=== PATIENT | female | born 2000 | race Caucasian/White ===

== ENCOUNTER 2021-08-17 18:01 | Emergency (ER) | payer OTHER ==
[~2021-08-17] VITALS: Ht 182.9 cm; Wt 81.3 kg
--- NOTE | 2021-08-17 18:31 | PHYS DOC ---
Adult General Chief Complaint Chief Complaint: FLANK PAIN HPI HPI Patient is a 21-year-old female who presents with flank pain, body aches and fever for the last couple of days, 6 out of 10, sharp in nature. States she has had fevers at home to 103 that respond to Tylenol. States that her urine has been dark and warm more than usual. Denies any recent travels, traumas, illnesses, chest pain, shortness of breath, abdominal pain, nausea, vomiting, diarrhea. Review of Systems Review of Systems Review of systems otherwise unremarkable except noted in HPI Allergies Allergies Allergies Coded Allergies Type Severity Reaction Last Updated Verified doxycycline Allergy Unknown 08/17/21 Yes Physical Exam Physical Exam Constitutional: Well developed, well nourished, no acute distress, non-toxic appearance. [] HENT: Normocephalic, atraumatic, bilateral external ears normal, oropharynx moist, no oral exudates, nose normal. [] Eyes: PERRLA, EOMI, conjunctiva normal, no discharge. [] Neck: Normal range of motion, no tenderness, supple, no stridor. [] Cardiovascular:Heart rate regular rhythm, no murmur [] Lungs & Thorax: Bilateral breath sounds clear to auscultation [] Abdomen: Bowel sounds normal, soft, no tenderness, no masses, no pulsatile masses. [] Skin: Warm, dry, no erythema, no rash. [] Back: No tenderness, no CVA tenderness. [] Extremities: No tenderness, no cyanosis, no clubbing, ROM intact, no edema. [] Neurologic: Alert and oriented X 3, normal motor function, normal sensory function, no focal deficits noted. [] Psychologic: Affect normal, judgement normal, mood normal. [] EKG EKG [] Radiology/Procedures Radiology/Procedures [] Heart Score C/O Chest Pain: No Risk Factors: Risk Factors: DM, Current or recent (<one month) smoker, HTN, HLP, family history of CAD, obesity. Risk Scores: Risk Factors: DM, Current or recent (<one month) smoker, HTN, HLP, family history of CAD, obesity. Course & Med Decision Making Course & Med Decision Making Patient is a 21-year-old female who presents with flank pain, body aches and fever Vital signs notable for fever. Physical exam noted above. Given Tylenol and pain medicine. Laboratory analysis notable for leukocytosis. Urinalysis with nitrite positive urinary tract infection and elevated white count. Discussed all findings with patient. Gave her dose of Rocephin in the ED for pyelonephritis. Discussed antibiotic regimen. Discussed symptom management at home. Advised to follow-up in the morning with primary care physician and set up a follow-up visit. Gave return precautions to the ED. Patient grateful, verbalized understanding and agreed with plan of discharge. Dragon Disclaimer Dragon Disclaimer This electronic medical record was generated, in whole or in part, using a voice recognition dictation system. Departure Departure: Impression: Primary Impression: Pyelonephritis Disposition: HOME / SELF CARE / HOMELESS Condition: GOOD Referrals: ALCIRA FORRESTER (PCP) Patient Instructions: Pyelonephritis, Adult Additional Instructions: Thank you for coming into the emergency department tonight and allowing us to take care of you. Please read all the attached information carefully to go over things we discussed. Please take all your antibiotics as prescribed and until gone. You can take Tylenol and ibuprofen at home as needed. Please stay well- hydrated. Please call your primary care physician in the morning to update on your ED visit and set up a follow-up as soon as you can for reevaluation of your urine and treatment. Please come back to the ED with new or concerning symptoms as we discussed. Scripts Cephalexin (KEFLEX) 500 Mg Capsule 1 CAP PO TID for pyelonephritis for 7 Days, #21 CAP Prov: MALIKA ARRIOLA MD 08/17/21 MALIKA ARRIOLA MD Aug 17, 2021 18:31
[2021-08-17 19:11] LABS: BASO # 0.1 x10^3/uL (0.0-0.2); BASO % 0 % (0-3); EOS % 0 % (0-3); HEMATOCRIT 44.5 % (36.0-47.0); HEMOGLOBIN 15.1 g/dL (12.0-15.5); LYMPH # 2.2 x10^3/uL (1.0-4.8); LYMPH % 12 % (24-48); MEAN CORPUSCULAR HEMOGLOBIN 31 pg (25-35); MEAN CORPUSCULAR HGB CONC 34 g/dL (31-37); MEAN CORPUSCULAR VOLUME 92 fL (79-100); MONO # 2.8 x10^3/uL (0.0-1.1); MONO % 15 % (0-9); NEUT # 13.3 x10^3uL (1.8-7.7); NEUT % 72 % (31-73); PLATELET COUNT 242 x10^3/uL (140-400); RED BLOOD COUNT 4.81 x10^6/uL (3.50-5.40); RED CELL DISTRIBUTION WIDTH 14.1 % (11.5-14.5); WHITE BLOOD COUNT 18.4 x10^3/uL (4.0-11.0)
[2021-08-17 19:13] LABS: CALCIUM 9.2 mg/dL (8.5-10.1); CREATININE 0.8 mg/dL (0.6-1.0); GFR 91.4; POTASSIUM 3.4 mmol/L (3.5-5.1)
[2021-08-17 19:18] LABS: ALBUMIN 4.1 g/dL (3.4-5.0); ALBUMIN/GLOBULIN RATIO 0.9 (1.0-1.7); TOTAL BILIRUBIN 0.7 mg/dL (0.2-1.0); TOTAL PROTEIN 8.8 g/dL (6.4-8.2)
[2021-08-17 19:30] LABS: BACTERIA,URINE MOD /HPF (0-FEW); BILIRUBIN,URINE NEG (NEG); CLARITY,URINE CLOUDY; COLOR,URINE YELLOW; GLUCOSE,URINE NEG (NEG); NITRITE,URINE POS (NEG); SQUAMOUS EPITHELIAL CELL,UR FEW /LPF; WBC,URINE >40 /HPF (0-4)
[2021-08-17] MEDS ORDERED: cefTRIAXone SODIUM 1 GM VIAL ONE ×2 (19:34→19:40)
[2021-08-17] MEDS ORDERED: CEPH500C PO (19:37)
[2021-08-17] MEDS ORDERED: IV NORMAL SALINE 50ML 50 ML ONE (19:40)
[2021-08-17] MEDS: oxyCODONE/APAP 5/325 1 TAB TABLET PO ONE (19:45)
[2021-08-17 20:03] VITALS: BP 132/55
[2021-08-17 20:09] LABS: % LYMPHS 17 % (24-48); % MONOS 14 % (0-10); % SEGS 69 % (35-66); PLT ESTIMATE ADEQUATE (ADEQUATE)
== END 2021-08-17 20:26 | disposition home or self-care (01) ==
LOC: ER 18:01
DX: N12 Tubulo-interstitial nephritis, not specified as acute or chronic (principal); Z88.1 Allergy status to other antibiotic agents
CPT/HCPCS: 36415; 80053; 81001; 81025; 83690; 85007; 85025; 87086; 96365; 99284; J0696

== ENCOUNTER 2021-09-13 05:39 | Emergency (ER) | payer OTHER ==
[~2021-09-13] VITALS: Ht 182.9 cm; Wt 80.3 kg
[~2021-09-13 05:39] MED LIST: CEPH500C PO
--- NOTE | 2021-09-13 05:47 | PHYS DOC ---
Past History Past Surgical History: No Surgical History Alcohol Use: None General Adult HPI: HPI: "I was doing .. Tricep dips... And felt something tear in the center of my chest on the left.... 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 Pain started after doing tricep dips. Patient denies any other health history. Patient denies any cardiac history. Patient denies any other injury. Patient denies any history of coagulopathy with her or family members. Patient denies any fever, chills or cough. Pt. follows with at [place]. Review of Systems: Review of Systems: Constitutional: Denies fever or chills Eyes: Denies change in visual acuity HENT: Denies nasal congestion or sore throat Respiratory: Denies cough or shortness of breath Cardiovascular: Complains of chest wall pain GI: Denies abdominal pain, nausea, vomiting, bloody stools or diarrhea : Denies dysuria Musculoskeletal: Denies back pain or joint pain Integument: Denies rash Neurologic: Denies headache, focal weakness or sensory changes Endocrine: Denies polyuria or polydipsia Lymphatic: Denies swollen glands Psychiatric: Denies depression or anxiety Family History: Family History: Noncontributory to presentation Current Medications: Current Meds: See nursing for home meds Allergies: Allergies: Allergies Coded Allergies Type Severity Reaction Last Updated Verified doxycycline Allergy Unknown 08/17/21 Yes Physical Exam: PE: Constitutional: Well developed, well nourished, no acute distress, non-toxic appearance. [] HENT: Normocephalic, atraumatic, bilateral external ears normal, oropharynx moist, no oral exudates, nose normal. [] Eyes: PERRLA, EOMI, conjunctiva normal, no discharge. [] Neck: Normal range of motion, no tenderness, supple, no stridor. [] Cardiovascular:Heart rate regular rhythm, no murmur [] Lungs & Thorax: Bilateral breath sounds equal apex on auscultation [. The palpation of sternal edge and left pectoral very tender. Pain is reproducible. Clavicle stable. Abdomen: Bowel sounds normal, soft, no tenderness, no masses, no pulsatile masses. [] Skin: Warm, dry, no erythema, no rash. [] Back: No tenderness, no CVA tenderness. [] Extremities: No tenderness, no cyanosis, no clubbing, ROM intact, no edema. Deltoid sensation intact. No AC separation. Neurologic: Alert and oriented X 3, normal motor function, normal sensory function, no focal deficits noted. [] Psychologic: Affect anxious, judgement normal, mood normal. [] EKG: EKG: [] Radiology/Procedures: Radiology/Procedures: [][address] [address] IMAGING REPORT Signed PATIENT: CARLTON RODAS JACCOUNT: [id number] : 2000 LOCATION: ER AGE: 21 SEX: F EXAM STATUS: REG ER ORD. PHYSICIAN: ASHLEE RUIZ MD REASON: Sternal pain-chest pain PROCEDURE: CHEST PA & LATERAL XR CHEST 2V Technique: PA and lateral views of the chest were obtained. Clinical History: Reason: Sternal pain-chest pain / Spl. Instructions: / History: Comparison: None. Findings: The heart and pulmonary vasculature appear within normal limits. The lungs are clear. The pleural margins are clear. Impression: No acute chest process is seen. Electronically signed by: Petar Steen III, MD (09/13/2021 6:27 AM) [facility] DICTATED AND SIGNED BY: PETAR STEEN III, MD DATE: 09/13/21 0626 CC: ALCIRA FORRESTER; ASHLEE RUIZ MD ~MTH0 0 Heart Score: C/O Chest Pain: N/A Risk Factors: Risk Factors: DM, Current or recent (<one month) smoker, HTN, HLP, family history of CAD, obesity. Risk Scores: Score 0 - 3: 2.5% MACE over next 6 weeks - Discharge Home Score 4 - 6: 20.3% MACE over next 6 weeks - Admit for Clinical Observation Score 7 - 10: 72.7% MACE over next 6 weeks - Early Invasive Strategies Course & Med Decision Making: Course & Med Decision Making Pertinent Labs and Imaging studies reviewed. (See chart for details) Endorsed to Dr. Otero at shift change. He will make final disposition once CXR completed. Recommend patient use ice packs as needed. Take Tylenol and ibuprofen for pain. Follow-up primary care. Impression: 1. Chest wall pain-left pectoral and sternal muscle tear [] Jolanta Disclaimer: Jolanta Disclaimer: This electronic medical record was generated, in whole or in part, using a voice recognition dictation system. Departure Departure: Referrals: ALCIRA FORRESTER (PCP) ASHLEE RUIZ MD Sep 13, 2021 05:47
[2021-09-13 05:51] VITALS: BP 117/42
--- NOTE | 2021-09-13 06:29 | RAD ---
XR CHEST 2V Technique: PA and lateral views of the chest were obtained. Clinical History: Reason: Sternal pain-chest pain / Spl. Instructions: / History: Comparison: None. Findings: The heart and pulmonary vasculature appear within normal limits. The lungs are clear. The pleural ma rgins are clear. Impression: No acute chest process is seen. Electronically signed by: Mark Baires III, MD (09/13/2021 6:27 AM) [facility]
[2021-09-13] MEDS ORDERED: ACETAMINOPHEN 500 MG TABLET PO ONE (06:30)
[2021-09-13 07:14] LABS: BACTERIA,URINE 0 /HPF (0-FEW); BILIRUBIN,URINE NEG (NEG); CLARITY,URINE CLEAR; COLOR,URINE YELLOW; GLUCOSE,URINE NEG (NEG); NITRITE,URINE NEG (NEG); RBC,URINE OCC /HPF (0-2); SQUAMOUS EPITHELIAL CELL,UR MANY /LPF; UROBILINOGEN,URINE 0.2 mg/dL (0.2 mg/dL)
== END 2021-09-13 06:46 | disposition home or self-care (01) ==
LOC: ER 05:39
DX: S29.011A Strain of muscle and tendon of front wall of thorax, initial encounter (principal); M25.512 Pain in left shoulder; Z88.1 Allergy status to other antibiotic agents; X50.9XXA Other and unspecified overexertion or strenuous movements or postures, initial encounter; Y93.B9 Activity, other involving muscle strengthening exercises; Y92.89 Other specified places as the place of occurrence of the external cause; Y99.8 Other external cause status
CPT/HCPCS: 71046; 81001; 81025; 99284